=== PATIENT | male | born 1970 | race Caucasian/White ===

== ENCOUNTER 2022-12-18 12:43 | Outpatient (CLI) | payer MEDICARE, MEDICAID, SELFPAY ==
--- NOTE | 2022-12-18 13:00 | MR_ITS ---
[address] [address] Phone:?[phone] Fax:?[phone] Referring Physician Information: Joseph Roque M.D. [address] [facility] [address] Phone:?[phone] Fax:?[phone] Patient:Cheri Bowles D.O.B:?1970 Sex:?Male Phone:?[phone] [facility] MRN:[id number] Exam Date:?12/18/2022 EXAM: MRI of the RIGHT SHOULDER, without contrast CLINICAL HISTORY: Chronic right shoulder pain and weakness. Suprascapular neuropathy of the right shoulder. COMPARISONS: MRI 09/21/2020. MRI 08/22/2009. TECHNICAL: MRI sequences of the right shoulder: Axials: PD, T2 Coronals: PD, STIR, T2 Sagittals: T2, PD SEDATION: None CONTRAST: None FINDINGS: Bones: No fracture or suspicious bone marrow signal abnormality. Coracoacromial arch: Acromion: No os acromiale. Type II acromion. Acromiohumeral space: The bony distance is unremarkable. Coracohumeral space: The bony distance is unremarkable. Acromioclavicular joint: Moderate degenerative changes with moderate inferior osteophytosis effacing the adjacent portion of the supraspinatus myotendinous junction. Coracoclavicular ligament: The coracoclavicular ligament is intact. Rotator cuff muscles/tendons: Supraspinatus and infraspinatus: Mild to moderate diffuse atrophy of the supraspinatus and infraspinatus muscles is unchanged compared to MRI 09/21/2020 and only slightly progressed compared to previous MRI 08/22/2009. Slight tendinopathy of the rotator cuff insertion at the junction of the supraspinatus and infraspinatus tendons best seen on sagittal series 8 image 4 is unchanged compared MRI 09/21/2020. Teres minor: The teres minor tendon and muscle are intact. Subscapularis: The subscapularis tendon and muscle are intact. Labrum and glenohumeral joint: No evidence of labral tear although evaluation is suboptimal because of nonarthrogram technique. Physiologic amount of joint fluid. No full-thickness chondral defect or subchondral bone marrow edema/cystic change is seen. No convincing evidence of capsular edema or thickening although evaluation is suboptimal because of lack of joint distention. Proximal biceps tendon, long head and short heads: The long and short heads of the proximal biceps tendon are intact. Bursae: Subacromial/subdeltoid: No convincing subacromial bursal thickening/bursitis. Subcoracoid: No convincing subcoracoid bursal thickening/bursitis. IMPRESSION: 1. Mild to moderate diffuse atrophy of the supraspinatus and infraspinatus muscles, unchanged compared to previous MRI 09/21/2020, only slightly progressed compared to MRI 08/22/2009, and of uncertain etiology. This could be secondary to suprascapular nerve pathology at the level of the suprascapular notch although no paralabral cyst or other lesion is seen within the suprascapular notch in this case. Chronic sequela of an entity such as Parsonage-Taylor syndrome is also a consideration among other possible etiologies. 2. Slight tendinopathy of the rotator cuff insertion at the junction of the supraspinatus and infraspinatus tendons. 3. No rotator cuff tendon tear. 4. Moderate acromioclavicular joint osteoarthritis with moderate inferior osteophytosis effacing the adjacent portion of the supraspinatus myotendinous junction. 5. Intact biceps tendon. RCB Electronically signed on 12/19/2022 7:48:00 AM by Lawrence Pleitez M.D.
== END 2022-12-18 12:44 | disposition home or self-care (01) ==
PROVIDERS: Visit Provider Family Medicine
DX: M25.511 Pain in right shoulder (principal); M75.101 Unspecified rotator cuff tear or rupture of right shoulder, not specified as traumatic; M19.011 Primary osteoarthritis, right shoulder; G56.81 Other specified mononeuropathies of right upper limb; R29.898 Other symptoms and signs involving the musculoskeletal system
CPT/HCPCS: 73221